=== PATIENT | male | born 1945 | race Caucasian/White ===

== ENCOUNTER 2022-05-27 14:39 | Outpatient (CLI) | payer MEDICARE | END 2022-05-27 14:40 | disposition home or self-care (01) | LOC: MADLAB 14:39 | PROVIDERS: ATTEND Nurse Practitioner Family | DX: M54.6 Pain in thoracic spine (principal); M47.814 Spondylosis without myelopathy or radiculopathy, thoracic region | CPT/HCPCS: 72072 ==

== ENCOUNTER 2024-04-19 23:00 | Emergency (ER) | payer MEDICARE ==
[~2024-04-19 23:00] MED LIST: Iopamidol 370 76% 100 ML VIAL ONE
[2024-04-20 00:27] LABS: Band 1 % (5-11); Eosinophils 1 % (0-10); Hematocrit 31.8 % (42.0-52.0); Hemoglobin 9.7 g/dL (14.0-18.0); Lymphocytes 10 % (21-51); MDiff Complete? YES; Mean Corpuscular HGB CONC 30.3 g/dL (32.0-36.0); Mean Corpuscular Hemoglobin 25.9 pg (27.0-31.0); Mean Corpuscular Volume 85.5 fl (78.0-98.0); Mean Platelet Volume 7.7 fL (7.4-10.4); Monocytes 6 % (0-10); Neutrophil 82 % (42-75); Platelet Count 284 10x3/uL (130-400); RBC Distribution Width 16.8 % (11.5-14.5); Red Blood Cell (RBC) Count 3.73 mill/uL (4.70-6.10); White Blood Cell (WBC) Count 7.8 10x3/uL (4.8-10.8)
[2024-04-20 00:33] LABS: ALT (SGPT) 20 U/L (8-55); AST (SGOT) 19 U/L (5-34); Albumin 3.5 g/dL (3.4-4.8); Alkaline Phosphatase 72 U/L (40-110); Anion Gap 16 mmol/L (10-20); BUN (Urea Nitrogen) 33 mg/dL (8.4-25.7); Bilirubin, Total 0.7 mg/dL (0.2-1.2); Calc. Creatinine Clearance 0 mL/min (70-130); Calcium 9.6 mg/dL (7.8-10.44); Carbon Dioxide 29 mmol/L (23-31); Chloride 103 mmol/L (98-107); Estimated GFR 78; Globulin 2.9 g/dL (2.4-3.5); Glucose 130 mg/dL (83-110); Potassium 3.7 mmol/L (3.5-5.1); Protein, Total 6.4 g/dL (5.8-8.1); Sodium 144 mmol/L (136-145)
[2024-04-20 00:36] LABS: Troponin I 0.015 ng/mL (< 0.028)
[2024-04-20] MEDS ORDERED: Furosemide 20 MG (2 mL) VIAL ONE (01:04)
[2024-04-20 05:47] LABS: Bilirubin Negative (Negative); Blood, Urine Negative (Negative); CAUTI Indications for Culture Acute Hematuria; Clarity Clear (Clear); Glucose, Urine (Dipstick) Negative (Negative); Ketone, Urine Negative (Negative); Leukocyte Negative (Negative); Nitrite Negative (Negative); Protein, Urine (Dipstick) Negative (Neg-Trace); RBC/HPF None Seen HPF (0-3); Specific Gravity, Urine 1.025 (1.005-1.030); Squamous Epithelial 0-3 HPF (0-3); Urobilinogen 0.2 mg/dL (Less than 2); WBC/HPF None Seen HPF (0-3); pH, Urine 5.5 (5.0-9.0)
[2024-04-20 05:48] LABS: Mucous/LPF 1+ LPF (<2+)
[2024-04-20 05:49] LABS: Urine Culture Reflex No No
[2024-04-20 06:04] LABS: #Basophils 0.1 thou/uL (0.0-0.2); #Eosinphils 0.5 thou/uL (0.0-0.7); #Lymphocytes 1.1 thou/uL (1.20-3.40); #Monocytes 0.6 thou/uL (0.11-0.59); #Neutrophils 4.5 thou/uL (1.40-6.50); %Basophils 1.3 % (0.0-1.0); %Eosinophils 6.9 % (0.0-10.0); %Lymphocytes 15.8 % (21.0-51.0); %Monocytes 9.3 % (0.0-10.0); %Neutrophils 66.7 % (42.0-75.0); Hematocrit 29.3 % (42.0-52.0); Hemoglobin 8.9 g/dL (14.0-18.0); Mean Corpuscular HGB CONC 30.4 g/dL (32.0-36.0); Mean Corpuscular Hemoglobin 25.7 pg (27.0-31.0); Mean Corpuscular Volume 84.8 fl (78.0-98.0); Mean Platelet Volume 7.7 fL (7.4-10.4); Platelet Count 274 10x3/uL (130-400); RBC Distribution Width 16.9 % (11.5-14.5); Red Blood Cell (RBC) Count 3.46 mill/uL (4.70-6.10); White Blood Cell (WBC) Count 6.7 10x3/uL (4.8-10.8)
[2024-04-20] MEDS ORDERED: metFORMIN 500 MG TAB ONE (10:32)
[2024-04-20] MEDS ORDERED: Tamsulosin HCl 0.4 MG CAP ONE (10:32)
[2024-04-20] MEDS ORDERED: Hydrochlorothiazide 25 MG TAB ONE (10:32)
[2024-04-20] MEDS ORDERED: Metoprolol Tartrate 50 MG TAB ONE (10:32)
[2024-04-20] MEDS ORDERED: Ezetimibe 10 MG TAB PO SCH (10:45)
[2024-04-20] MEDS ORDERED: Donepezil HCl 10 MG TAB PO SCH (11:00)
[2024-04-20] MEDS ORDERED: Citalopram 20 MG TAB PO SCH (11:00)
[2024-04-20] MEDS ORDERED: Aripiprazole 10 MG TAB PO SCH (11:00)
[2024-04-20] MEDS ORDERED: metFORMIN 850 MG TAB PO SCH (11:15)
[2024-04-20] MEDS ORDERED: Pantoprazole 40 MG VIAL ONE (12:31)
== END 2024-04-20 13:27 | disposition short-term general hospital (02) ==
LOC: MADERS 23:00
DX: R06.02 Shortness of breath (principal); D64.9 Anemia, unspecified; I11.0 Hypertensive heart disease with heart failure; I50.9 Heart failure, unspecified; E11.9 Type 2 diabetes mellitus without complications; F17.210 Nicotine dependence, cigarettes, uncomplicated; Z79.899 Other long term (current) drug therapy; Z79.82 Long term (current) use of aspirin; Z79.84 Long term (current) use of oral hypoglycemic drugs
CPT/HCPCS: 36430; 71045; 71260; 74177; 80053; 81001; 82962; 83880; 84484; 85025 ×2; 86850; 86900; 86901; 86920; 93005; J1940; J2470; P9016; Q9967; 36416; 51701; 82274; 96374; 96375

== ENCOUNTER 2024-04-24 10:21 | Inpatient (IN) | payer MEDICARE ==
[2024-04-24 18:00] VITALS: BMI 28.8
[2024-04-24] MEDS ORDERED: Glucagon 1 MG/ML KIT IM PRN (18:21)
[2024-04-24] MEDS ORDERED: Dextrose 50% Abboject 50 ML SYRINGE SLOW IVP PRN (18:21)
[2024-04-24] MEDS: Cefdinir 300 MG CAP PO SCH (20:35)
[2024-04-24] MEDS: Atorvastatin Calcium 40 MG TAB PO SCH (20:35)
[2024-04-24] MEDS: Ipratropium Bromide 0.03% Nasal Inhaler 30 ml Bottle EA NARE SCH (20:36)
[2024-04-24] MEDS: Albuterol 1.25 MG (3 mL) NEB NEB PRN (20:36)
[2024-04-24] MEDS: HYDROcodone/Acetaminophen 7.5/325 mg Tablet PO PRN (21:04)
[2024-04-25] MEDS: Transdermal Patch Removal TOP SCH (05:23)
[2024-04-25] MEDS: metFORMIN 850 MG TAB PO SCH (05:23)
[2024-04-25] MEDS: Enoxaparin 40 MG (0.4 mL) SYRINGE SC SCH (08:43)
[2024-04-25] MEDS: Amlodipine 5 MG TAB PO SCH (08:43)
[2024-04-25] MEDS: Aripiprazole 10 MG TAB PO SCH (08:44)
[2024-04-25] MEDS: Furosemide 20 MG TAB PO SCH (08:44)
[2024-04-25] MEDS: Pantoprazole DR 40 MG TAB PO SCH (08:45)
[2024-04-25] MEDS: Losartan 50 MG TAB PO SCH (08:45)
[2024-04-25] MEDS: Aspirin 81 mg Enteric Coated Tablet PO SCH (08:45)
[2024-04-25] MEDS: Potassium Chloride 10 MEQ TAB PO SCH (08:45)
[2024-04-25] MEDS: Tamsulosin HCl 0.4 MG CAP PO SCH (08:45)
[2024-04-25] MEDS: Citalopram 20 MG TAB PO SCH (08:46)
[2024-04-25] MEDS: Lidocaine 4% Patch TD SCH (08:46)
[2024-04-25] MEDS: Ezetimibe 10 MG TAB PO SCH (08:46)
[2024-04-25 09:29] VITALS: BMI 28.8
[2024-04-26 08:13] LABS: Hematocrit 37.2 % (42.0-52.0); Hemoglobin 10.8 g/dL (14.0-18.0); Mean Corpuscular HGB CONC 29.1 g/dL (32.0-36.0); Mean Corpuscular Hemoglobin 25.4 pg (27.0-31.0); Mean Corpuscular Volume 87.1 fl (78.0-98.0); Red Blood Cell (RBC) Count 4.27 mill/uL (4.70-6.10); White Blood Cell (WBC) Count 9.7 10x3/uL (4.8-10.8)
[2024-04-26 08:14] LABS: Platelet Count 342 10x3/uL (130-400); RBC Distribution Width 16.7 % (11.5-14.5)
[2024-04-26] MEDS: Donepezil HCl 10 MG TAB PO SCH (08:18)
[2024-04-26] MEDS: Levothyroxine Sodium 25 MCG TAB PO SCH (08:18)
[2024-04-26 08:19] LABS: Anion Gap 16 mmol/L (10-20); BUN (Urea Nitrogen) 25 mg/dL (8.4-25.7); Calc. Creatinine Clearance 117 mL/min (70-130); Calcium 9.3 mg/dL (7.8-10.44); Carbon Dioxide 23 mmol/L (23-31); Chloride 106 mmol/L (98-107); Estimated GFR 95; Glucose 88 mg/dL (83-110); Magnesium 1.7 mg/dL (1.6-2.6); Potassium 4.1 mmol/L (3.5-5.1); Sodium 141 mmol/L (136-145)
[2024-04-26] MEDS ORDERED: Acetaminophen 325 MG TAB PO PRN (17:23)
[2024-04-26] MEDS: Ipratropium/Albuterol 3 ML NEB NEB SCH (20:39)
[2024-04-27] MEDS: Levothyroxine Sodium 25 MCG TAB PO SCH (05:38)
[2024-04-30] MEDS ORDERED: Ipratropium/Albuterol 3 ML NEB NEB PRN (15:28)
[2024-04-30] MEDS: Ipratropium Bromide 2.5 ml Neb NEB SCH (19:38)
[2024-04-30] MEDS: Mometasone 200 MCG/Formoterol 5 MCG 60 PUFF INHALER INH SCH (20:01)
[2024-05-01] MEDS: Amlodipine 5 MG TAB PO SCH (08:40)
[2024-05-03 06:11] LABS: Hematocrit 32.5 % (42.0-52.0); Hemoglobin 9.9 g/dL (14.0-18.0); Mean Corpuscular HGB CONC 30.3 g/dL (32.0-36.0); Mean Corpuscular Hemoglobin 25.8 pg (27.0-31.0); Mean Corpuscular Volume 85.2 fl (78.0-98.0); Mean Platelet Volume 9.3 fL (7.4-10.4); Platelet Count 393 10x3/uL (130-400); RBC Distribution Width 17.2 % (11.5-14.5); Red Blood Cell (RBC) Count 3.82 mill/uL (4.70-6.10); White Blood Cell (WBC) Count 8.6 10x3/uL (4.8-10.8)
[2024-05-03 06:24] LABS: Anion Gap 16 mmol/L (10-20); BUN (Urea Nitrogen) 17 mg/dL (8.4-25.7); Calc. Creatinine Clearance 116 mL/min (70-130); Calcium 9.1 mg/dL (7.8-10.44); Carbon Dioxide 24 mmol/L (23-31); Chloride 105 mmol/L (98-107); Estimated GFR 95; Glucose 95 mg/dL (83-110); Potassium 3.6 mmol/L (3.5-5.1); Sodium 141 mmol/L (136-145)
[2024-05-04 08:11] VITALS: BP 153/71; TEMP 97.8
== END 2024-05-04 11:40 | disposition home health service (06) | DRG 947 ==
LOC: MADMS 17:57
PROVIDERS: ADMIT Family Medicine; ATTEND Family Medicine
DX: R53.81 Other malaise (principal); I50.33 Acute on chronic diastolic (congestive) heart failure; J18.9 Pneumonia, unspecified organism; J96.01 Acute respiratory failure with hypoxia; I25.10 Atherosclerotic heart disease of native coronary artery without angina pectoris; D64.9 Anemia, unspecified; Z66 Do not resuscitate; J44.9 Chronic obstructive pulmonary disease, unspecified; I50.9 Heart failure, unspecified; W19.XXXD Unspecified fall, subsequent encounter; F03.90 Unspecified dementia, unspecified severity, without behavioral disturbance, psychotic disturbance, mood disturbance, and anxiety; R91.8 Other nonspecific abnormal finding of lung field; I11.0 Hypertensive heart disease with heart failure; E78.5 Hyperlipidemia, unspecified; F17.210 Nicotine dependence, cigarettes, uncomplicated; E11.51 Type 2 diabetes mellitus with diabetic peripheral angiopathy without gangrene; Z98.890 Other specified postprocedural states; Z90.49 Acquired absence of other specified parts of digestive tract; Z95.1 Presence of aortocoronary bypass graft; Z79.82 Long term (current) use of aspirin; Z79.899 Other long term (current) drug therapy; Z79.890 Hormone replacement therapy
CPT/HCPCS: 36415; 36416; 71046; 80048; 83735; 85027; 94640; J1650; J7620; J7644

== ENCOUNTER 2024-07-08 17:28 | Emergency (ER) | payer MEDICARE | END 2024-07-08 18:10 | disposition home or self-care (01) | LOC: MADERS 17:28 | DX: S50.812A Abrasion of left forearm, initial encounter (principal); E11.9 Type 2 diabetes mellitus without complications; I10 Essential (primary) hypertension; I25.10 Atherosclerotic heart disease of native coronary artery without angina pectoris; J44.9 Chronic obstructive pulmonary disease, unspecified; F17.210 Nicotine dependence, cigarettes, uncomplicated; W01.0XXA Fall on same level from slipping, tripping and stumbling without subsequent striking against object, initial encounter; Z79.84 Long term (current) use of oral hypoglycemic drugs; Z79.899 Other long term (current) drug therapy; Z79.82 Long term (current) use of aspirin | CPT/HCPCS: 99283 ==

== ENCOUNTER 2025-04-03 13:21 | Emergency (ER) | payer MEDICARE ==
[2025-04-03 13:47] LABS: #Basophils 0.1 thou/uL (0.0-0.2); #Eosinophils 0.3 thou/uL (0.0-0.7); #Lymphocytes 1.3 thou/uL (1.20-3.40); #Monocytes 0.6 thou/uL (0.11-0.59); #Neutrophils 6.1 thou/uL (1.40-6.50); %Basophils 1.4 % (0.0-1.0); %Eosinophils 3.0 % (0.0-10.0); %Lymphocytes 15.7 % (21.0-51.0); %Monocytes 7.2 % (0.0-10.0); %Neutrophils 72.6 % (42.0-75.0); Hematocrit 39.8 % (42.0-52.0); Hemoglobin 12.8 g/dL (14.0-18.0); Mean Corpuscular Hemoglobin 29.7 pg (27.0-31.0); Mean Corpuscular Volume 92.7 fl (78.0-98.0); Platelet Count 378 10x3/uL (130-400); Red Blood Cell (RBC) Count 4.30 mill/uL (4.70-6.10); White Blood Cell (WBC) Count 8.3 10x3/uL (4.8-10.8)
[2025-04-03 14:02] LABS: INR-International Normal Ratio 1.1; Prothrombin Time 14.2 sec (12.0-14.7)
[2025-04-03 14:03] LABS: PTT 28.7 sec (22.9-36.1)
[2025-04-03 14:07] LABS: ALT (SGPT) 34 U/L (Less than 45); AST (SGOT) 26 U/L (11-34); Albumin 3.6 g/dL (3.1-4.5); Alkaline Phosphatase 110 U/L (40-110); Anion Gap 14 mmol/L (10-20); BUN (Urea Nitrogen) 25 mg/dL (8.4-25.7); Bilirubin, Total 0.9 mg/dL (0.3-1.2); Calc. Creatinine Clearance 0 mL/min (70-130); Calcium 9.2 mg/dL (7.8-10.44); Carbon Dioxide 24 mmol/L (23-31); Chloride 105 mmol/L (98-107); Globulin 3.1 g/dL (2.4-3.5); Glucose 137 mg/dL (83-110); Potassium 3.5 mmol/L (3.5-5.1); Sodium 139 mmol/L (136-145)
[2025-04-03] MEDS ORDERED: Tenecteplase 50 MG ONE (14:44)
== END 2025-04-03 15:40 | disposition short-term general hospital (02) ==
LOC: MADERS 13:21
DX: R29.898 Other symptoms and signs involving the musculoskeletal system (principal); R29.707 NIHSS score 7; I25.10 Atherosclerotic heart disease of native coronary artery without angina pectoris; E11.9 Type 2 diabetes mellitus without complications; I10 Essential (primary) hypertension; J44.9 Chronic obstructive pulmonary disease, unspecified; F17.210 Nicotine dependence, cigarettes, uncomplicated; Z79.82 Long term (current) use of aspirin; Z79.02 Long term (current) use of antithrombotics/antiplatelets; Z79.51 Long term (current) use of inhaled steroids; Z79.899 Other long term (current) drug therapy
CPT/HCPCS: 36415; 36416; 37195; 70450; 70496; 70498; 71045; 80053; 85025; 85610; 85730; 93005; 94760; J3101; Q9967

== ENCOUNTER 2025-04-20 11:25 | Inpatient (IN) | payer MEDICARE ==
[2025-04-20 14:34] VITALS: BMI 27.8
[2025-04-20] MEDS: Pantoprazole 40 MG DR.TAB PO SCH (20:44)
[2025-04-20] MEDS: Apixaban 5 MG TAB PO SCH (20:44)
[2025-04-20] MEDS: Acetaminophen 325 MG TAB PO PRN (20:45)
[2025-04-20] MEDS: Mometasone 200 MCG/Formoterol 5 MCG 60 PUFF INHALER INH SCH (20:53)
[2025-04-20] MEDS: Transdermal Patch Removal TOP SCH (20:54)
[2025-04-20] MEDS ORDERED: Folic Acid/Vit B Comp W-C PO SCH (21:00)
[2025-04-21] MEDS: Spironolactone 25 MG TAB PO SCH (08:49)
[2025-04-21] MEDS: Citalopram 20 MG TAB PO SCH (08:50)
[2025-04-21] MEDS: Metoprolol Succinate XL 50 MG ER.TAB PO SCH (08:51)
[2025-04-21] MEDS: Aspirin 325 MG TAB PO SCH (08:51)
[2025-04-21] MEDS ORDERED: Citalopram 20 MG TAB PO SCH (09:00)
[2025-04-21] MEDS: HYDROcodone/Acetaminophen 5/325 mg Tablet PO PRN (23:17)
[2025-04-22 05:14] LABS: #Basophils 0.2 thou/uL (0.0-0.2); #Eosinophils 0.3 thou/uL (0.0-0.7); #Lymphocytes 1.3 thou/uL (1.20-3.40); #Monocytes 0.8 thou/uL (0.11-0.59); #Neutrophils 6.7 thou/uL (1.40-6.50); %Basophils 2.3 % (0.0-1.0); %Eosinophils 3.7 % (0.0-10.0); %Lymphocytes 13.7 % (21.0-51.0); %Monocytes 8.1 % (0.0-10.0); %Neutrophils 72.3 % (42.0-75.0); Anion Gap 15 mmol/L (10-20); BUN (Urea Nitrogen) 38 mg/dL (8.4-25.7); Calc. Creatinine Clearance 102 mL/min (70-130); Calcium 9.2 mg/dL (7.8-10.44); Carbon Dioxide 19 mmol/L (23-31); Chloride 107 mmol/L (98-107); Glucose 97 mg/dL (83-110); Hematocrit 31.7 % (42.0-52.0); Hemoglobin 10.1 g/dL (14.0-18.0); Mean Corpuscular Hemoglobin 29.8 pg (27.0-31.0); Mean Corpuscular Volume 93.3 fl (78.0-98.0); Platelet Count 540 10x3/uL (130-400); Potassium 4.1 mmol/L (3.5-5.1); Red Blood Cell (RBC) Count 3.40 mill/uL (4.70-6.10); Sodium 137 mmol/L (136-145); White Blood Cell (WBC) Count 9.2 10x3/uL (4.8-10.8)
[2025-04-24] MEDS: Ferrous Gluconate 324 MG TAB PO SCH (08:45)
[2025-04-26] MEDS: Citalopram 20 MG TAB PO SCH (09:13)
[2025-04-28] MEDS ORDERED: Lantiseptic Ointment 130 GM JAR TOP PRN (16:16)
[2025-04-28] MEDS: Lantiseptic Ointment 130 GM JAR TOP SCH (20:37)
[2025-04-29 05:33] LABS: #Basophils 0.1 thou/uL (0.0-0.2); #Eosinophils 0.4 thou/uL (0.0-0.7); #Lymphocytes 1.8 thou/uL (1.20-3.40); #Monocytes 0.7 thou/uL (0.11-0.59); #Neutrophils 7.7 thou/uL (1.40-6.50); %Basophils 1.0 % (0.0-1.0); %Eosinophils 3.4 % (0.0-10.0); %Lymphocytes 17.2 % (21.0-51.0); %Monocytes 6.7 % (0.0-10.0); %Neutrophils 71.7 % (42.0-75.0); Hematocrit 30.9 % (42.0-52.0); Hemoglobin 10.0 g/dL (14.0-18.0); Mean Corpuscular Hemoglobin 30.2 pg (27.0-31.0); Mean Corpuscular Volume 93.7 fl (78.0-98.0); Platelet Count 548 10x3/uL (130-400); Red Blood Cell (RBC) Count 3.30 mill/uL (4.70-6.10); White Blood Cell (WBC) Count 10.7 10x3/uL (4.8-10.8)
[2025-04-29] MEDS: Acetaminophen 325 MG TAB PO PRN (14:18)
[2025-04-30 05:42] LABS: Anion Gap 12 mmol/L (10-20); BUN (Urea Nitrogen) 35 mg/dL (8.4-25.7); Calc. Creatinine Clearance 126 mL/min (70-130); Calcium 8.9 mg/dL (7.8-10.44); Carbon Dioxide 22 mmol/L (23-31); Chloride 110 mmol/L (98-107); Glucose 93 mg/dL (83-110); Potassium 3.8 mmol/L (3.5-5.1); Sodium 140 mmol/L (136-145)
[2025-04-30] MEDS: Metoprolol Succinate XL 25 MG ER.TAB PO SCH (08:33)
[2025-04-30 11:23] VITALS: BMI 26.9
[2025-04-30 16:11] LABS: Hematocrit 32.3 % (42.0-52.0); Hemoglobin 10.6 g/dL (14.0-18.0); MDiff Complete? YES; Mean Corpuscular Hemoglobin 30.6 pg (27.0-31.0); Mean Corpuscular Volume 93.7 fl (78.0-98.0); Platelet Count 570 10x3/uL (130-400); Red Blood Cell (RBC) Count 3.45 mill/uL (4.70-6.10); White Blood Cell (WBC) Count 33.1 10x3/uL (4.8-10.8)
[2025-04-30 16:18] LABS: ALT (SGPT) 37 U/L (Less than 45); AST (SGOT) 34 U/L (11-34); Albumin 2.6 g/dL (3.1-4.5); Alkaline Phosphatase 120 U/L (40-110); Anion Gap 17 mmol/L (10-20); BUN (Urea Nitrogen) 37 mg/dL (8.4-25.7); Bilirubin, Total 0.7 mg/dL (0.3-1.2); Calc. Creatinine Clearance 122 mL/min (70-130); Calcium 9.3 mg/dL (7.8-10.44); Carbon Dioxide 20 mmol/L (23-31); Chloride 108 mmol/L (98-107); Globulin 4.4 g/dL (2.4-3.5); Glucose 137 mg/dL (83-110); Potassium 3.8 mmol/L (3.5-5.1); Sodium 141 mmol/L (136-145)
[2025-04-30] MEDS: Vancomycin 1 GM in Sodium Chloride 0.9% 250 ML 250 ML IVPB SCH (18:17)
[2025-04-30] MEDS: Vancomycin HCl 750 MG in Sodium Chloride 0.9% 250 ML 250 ML IVPB SCH (19:56)
[2025-04-30] MEDS ORDERED: Vancomycin 1.25 GM in Sodium Chloride 0.9% 250 ML 300 ML IVPB SCH (21:00)
[2025-05-01 02:45] LABS: Glucose, Urine (Dipstick) Negative (Negative); Leukocyte Moderate (Negative); Protein, Urine (Dipstick) 100 mg/dL (Neg-Trace); Specific Gravity, Urine 1.015 (1.005-1.030)
[2025-05-01 02:53] LABS: Bacteria/HPF 1+ HPF (None Seen); CAUTI Indications for Culture Fever or rigors; RBC/HPF 21-50 HPF (0-3); Urine Culture Reflex Yes Yes; WBC/HPF Greater than 50 HPF (0-3)
[2025-05-01 05:42] LABS: Vancomycin, Random 13.9 ug/mL (See Comment)
[2025-05-01 05:43] LABS: Calc. Creatinine Clearance 109.0 mL/min (70-130)
[2025-05-01] MEDS: Vancomycin HCl 750 MG in Sodium Chloride 0.9% 250 ML 250 ML IVPB SCH (05:58)
[2025-05-04] MEDS ORDERED: Hyoscyamine SL 0.125 MG TAB SL PRN (07:07)
[2025-05-04 11:08] VITALS: BP 160/62; TEMP 99.6
== END 2025-05-04 11:30 | disposition hospice, home (50) | DRG 945 ==
LOC: MADMS 13:09
PROVIDERS: ADMIT Family Medicine; ATTEND Family Medicine
PROC: F07Z5ZZ Bed Mobility Treatment (ICD-10-PCS; principal; 2025-04-21)
PROC: F08Z0ZZ Bathing/Showering Techniques Treatment (ICD-10-PCS; 2025-04-21)
PROC: 3E03329 Introduction of Other Anti-infective into Peripheral Vein, Percutaneous Approach (ICD-10-PCS; 2025-04-30)
DX: R53.81 Other malaise (principal); A41.9 Sepsis, unspecified organism; J96.01 Acute respiratory failure with hypoxia; G61.0 Guillain-Barre syndrome; I82.401 Acute embolism and thrombosis of unspecified deep veins of right lower extremity; E87.1 Hypo-osmolality and hyponatremia; Z66 Do not resuscitate; N40.0 Benign prostatic hyperplasia without lower urinary tract symptoms; E78.5 Hyperlipidemia, unspecified; J44.9 Chronic obstructive pulmonary disease, unspecified; I25.10 Atherosclerotic heart disease of native coronary artery without angina pectoris; E03.9 Hypothyroidism, unspecified; F03.90 Unspecified dementia, unspecified severity, without behavioral disturbance, psychotic disturbance, mood disturbance, and anxiety; D64.9 Anemia, unspecified; M54.9 Dorsalgia, unspecified; Z79.899 Other long term (current) drug therapy; Z98.890 Other specified postprocedural states; Z95.1 Presence of aortocoronary bypass graft; Z72.0 Tobacco use; R00.1 Bradycardia, unspecified; N40.1 Benign prostatic hyperplasia with lower urinary tract symptoms; E87.6 Hypokalemia; F41.1 Generalized anxiety disorder; L89.159 Pressure ulcer of sacral region, unspecified stage; Z97.8 Presence of other specified devices; R26.9 Unspecified abnormalities of gait and mobility
CPT/HCPCS: 36415; 71045; 74018; 80048; 80202; 81001; 82565; 85025; 87040; 87077; 87086; 87186; 87428; 94640; 94664; G0283-GP; J2272; J2543; J3373; J7042; J7050; Q0162